=== PATIENT | female | born 1990 | race Two or more races ===

== ENCOUNTER 2025-03-24 10:40 | Outpatient (CLI) | payer OTHER | END 2025-03-24 10:46 | disposition home or self-care (01) | LOC: PRENATAL 10:40 | PROVIDERS: ATTEND Obstetrics & Gynecology Maternal & Fetal Medicine | DX: O44.00 Complete placenta previa NOS or without hemorrhage, unspecified trimester (principal); O99.280 Endocrine, nutritional and metabolic diseases complicating pregnancy, unspecified trimester; Z3A.21 21 weeks gestation of pregnancy ==

== ENCOUNTER 2025-06-17 10:24 | Outpatient (CLI) | payer OTHER ==
[~2025-06-17 10:24] MED LIST: SYNTHROID75 MCG PO
== END 2025-06-17 10:25 | disposition home or self-care (01) ==
LOC: PRENATAL 10:24
PROVIDERS: ATTEND Obstetrics & Gynecology Maternal & Fetal Medicine
DX: O26.843 Uterine size-date discrepancy, third trimester (principal); O36.8130 Decreased fetal movements, third trimester, not applicable or unspecified; O99.283 Endocrine, nutritional and metabolic diseases complicating pregnancy, third trimester; O36.63X0 Maternal care for excessive fetal growth, third trimester, not applicable or unspecified; Z3A.34 34 weeks gestation of pregnancy